=== PATIENT | female | born 1950 | race Two or more races ===

== ENCOUNTER 2021-07-14 06:26 | Day surgery (SDC) | payer OTHER ==
[~2021-07-14 06:26] MED LIST: EVISTA60 MG PO; LIPITOR PO; METFORMIN HCL500 M4 PO; OMEGA 3 1,0001 EACH PO; SYNTHROID50 MCG PO; VITAMIN D3 PO
== END 2021-07-14 17:30 | disposition home or self-care (01) ==
LOC: CIR.AMB 06:26
PROVIDERS: ATTEND Specialist
DX: C54.1 Malignant neoplasm of endometrium (principal); Z20.822 Contact with and (suspected) exposure to COVID-19

== ENCOUNTER 2021-09-30 07:45 | Inpatient (IN) | payer OTHER ==
[~2021-09-30] VITALS: Ht 149.9 cm; Wt 45.8 kg
[2021-10-01] MEDS ORDERED: SYNTHROID75 MCG PO (14:33)
[2021-10-07] MEDS ORDERED: ATORVASTATIN CA10 MG (08:30)
[2021-10-07] MEDS ORDERED: FISH OIL EC 1,1 EAC2 (08:31)
[2021-10-07] MEDS ORDERED: VITAMIN D325 MC2 (08:32)
[2021-10-26] MEDS ORDERED: AMLODIPINE BESY10 MG PO (14:50)
[2021-10-26] MEDS ORDERED: LEVOTHYROXINE50 MCG PO (14:51)
[2021-10-26] MEDS ORDERED: LOSARTAN POTASS25 MG PO (14:52)
[2021-10-26] MEDS ORDERED: TOPROL XL25 M1 PO (14:52)
== END 2021-10-26 19:27 | DRG 739 ==
LOC: O/R 10-06 05:54 → OB/GYN 10-06 05:54 → SURH 10-06 07:00 → OB/GYN 10-06 15:12 → ICU 10-09 22:25 → SURH 10-16 13:17
PROVIDERS: ADMIT Specialist; ATTEND Specialist
PROC: 0UT20ZZ Resection of Bilateral Ovaries, Open Approach (ICD-10-PCS; 2021-10-06)
PROC: 0UT70ZZ Resection of Bilateral Fallopian Tubes, Open Approach (ICD-10-PCS; 2021-10-06)
PROC: 07BC0ZZ Excision of Pelvis Lymphatic, Open Approach (ICD-10-PCS; 2021-10-06)
PROC: 07BD0ZZ Excision of Aortic Lymphatic, Open Approach (ICD-10-PCS; 2021-10-06)
PROC: 0DNN0ZZ Release Sigmoid Colon, Open Approach (ICD-10-PCS; 2021-10-06)
PROC: 0UT90ZZ Resection of Uterus, Open Approach (ICD-10-PCS; principal; 2021-10-06 07:00)
PROC: 0BH17EZ Insertion of Endotracheal Airway into Trachea, Via Natural or Artificial Opening (ICD-10-PCS; 2021-10-08)
PROC: 5A1955Z Respiratory Ventilation, Greater than 96 Consecutive Hours (ICD-10-PCS; 2021-10-08)
PROC: BW21ZZZ Computerized Tomography (CT Scan) of Abdomen and Pelvis (ICD-10-PCS; 2021-10-08)
PROC: 4A033R1 Measurement of Arterial Saturation, Peripheral, Percutaneous Approach (ICD-10-PCS; 2021-10-08)
PROC: 0DB80ZZ Excision of Small Intestine, Open Approach (ICD-10-PCS; 2021-10-09)
PROC: 0DN80ZZ Release Small Intestine, Open Approach (ICD-10-PCS; 2021-10-09)
PROC: 02H633Z Insertion of Infusion Device into Right Atrium, Percutaneous Approach (ICD-10-PCS; 2021-10-09)
PROC: 30243N1 Transfusion of Nonautologous Red Blood Cells into Central Vein, Percutaneous Approach (ICD-10-PCS; 2021-10-10)
PROC: 8E0ZXY6 Isolation (ICD-10-PCS; 2021-10-10)
PROC: B246ZZZ Ultrasonography of Right and Left Heart (ICD-10-PCS; 2021-10-13)
PROC: 4A12X4Z Monitoring of Cardiac Electrical Activity, External Approach (ICD-10-PCS; 2021-10-16)
DX: C53.0 Malignant neoplasm of endocervix (principal); K63.1 Perforation of intestine (nontraumatic); J95.821 Acute postprocedural respiratory failure; T81.12XA Postprocedural septic shock, initial encounter; A41.59 Other Gram-negative sepsis; N73.3 Female acute pelvic peritonitis; T81.41XA Infection following a procedure, superficial incisional surgical site, initial encounter; T81.44XA Sepsis following a procedure, initial encounter; Z16.12 Extended spectrum beta lactamase (ESBL) resistance; G72.81 Critical illness myopathy; N99.4 Postprocedural pelvic peritoneal adhesions; N73.6 Female pelvic peritoneal adhesions (postinfective); D64.9 Anemia, unspecified; N83.291 Other ovarian cyst, right side; N83.292 Other ovarian cyst, left side; N83.8 Other noninflammatory disorders of ovary, fallopian tube and broad ligament; B96.1 Klebsiella pneumoniae [K. pneumoniae] as the cause of diseases classified elsewhere; B96.5 Pseudomonas (aeruginosa) (mallei) (pseudomallei) as the cause of diseases classified elsewhere; B95.2 Enterococcus as the cause of diseases classified elsewhere; Z20.822 Contact with and (suspected) exposure to COVID-19